=== PATIENT | female | born 1950 | race African-American/Black ===

== ENCOUNTER 2020-04-07 19:50 | Inpatient (IN) | payer MEDICARE, MEDICAID ==
[~2020-04-07] VITALS: Ht 172.7 cm; Wt 160.1 kg
[2020-04-07] MEDS ORDERED: ACETAMINOPHEN 325MG TABLET PO ONE (20:45)
[2020-04-07] MEDS ORDERED: DILTIAZEM HCL 5MG/ML 5ML VIAL IV ONE (21:00)
[2020-04-07 21:07] LABS: BASOPHILS % 0.7 % (0.0-2.0); EOSINOPHILS % 2.8 % (0.0-5.0); HEMATOCRIT. 28.6 % (36.0-48.0); LYMPHOCYTES % 12.1 % (20.0-50.0); MEAN CORPUSCULAR HEMOGLOBIN 29.7 pg (28.0-32.0); MEAN PLATELET VOLUME 10.9 fl (7.4-10.4); MONOCYTES % 9.3 % (2.0-8.0); NEUTROPHILS % 75.1 % (40.0-76.0); PLATELET 145 x1000/uL (130-400); RED BLOOD CELL COUNT 3.04 mill/uL (4.2-5.4); RED CELL DISTRIBUTION WIDTH 16.5 % (11.6-14.6)
[2020-04-07 21:14] LABS: CHLORIDE 114 mEq/L (98-107)
[2020-04-07 21:17] LABS: INR 1.2; PROTHROMBIN TIME 12.9 sec (9.6-11.0)
[2020-04-07 21:25] LABS: CREATINE KINASE 62 IU/L (26-192)
[2020-04-07 21:26] LABS: CREATINE KINASE MB FRACTION 2.9 ng/mL (0.5-3.6)
[2020-04-07 23:03] LABS: CLARITY URINE TURBID (CLEAR); COLOR URINE YELLOW (YELLOW); KETONES URINE TRACE (NEGATIVE); LEUKOCYTE ESTERASE URINE 3+ (NEGATIVE); NITRITE URINE NEGATIVE (NEGATIVE); OCCULT BLOOD URINE 2+ (NEGATIVE); PH URINE 5.5 (4.5-8.0); PROTEIN URINE 2+ (NEGATIVE); SPECIFIC GRAVITY URINE 1.016 (1.005-1.030)
[2020-04-07] MEDS ORDERED: ENOXAPARIN 40MG/0.4ML SYR SUBCUT SCH (23:15)
[2020-04-07] MEDS ORDERED: TRAMADOL 50MG TABLET PO PRN (23:15)
[2020-04-07] MEDS ORDERED: ZOLPIDEM TARTRATE 5MG TABLET PO PRN (23:15)
[2020-04-07] MEDS ORDERED: DOCUSATE SODIUM 100MG CAPSULE PO PRN (23:15)
[2020-04-07] MEDS ORDERED: IPRATROPIUM/ALBUTEROL 0.5-3(2.5)MG/3ML NEB NEB PRN (23:15)
[2020-04-07] MEDS ORDERED: CLONIDINE 0.1MG TABLET PO PRN (23:15)
[2020-04-07] MEDS ORDERED: GUAIFENESIN 200MG/10ML SUGAR FREE UDC PO PRN (23:15)
[2020-04-07] MEDS ORDERED: ACETAMINOPHEN 325MG TABLET PO PRN (23:15)
[2020-04-07] MEDS ORDERED: LORAZEPAM 0.5MG TABLET PO PRN (23:15)
[2020-04-07] MEDS ORDERED: DEXTROSE 50% WATER 50ML SYRINGE IV PRN (23:15)
[2020-04-07] MEDS ORDERED: ONDANSETRON HCL 4MG/2ML INJ IV PRN (23:15)
[2020-04-07] MEDS ORDERED: NITROGLYCERIN 0.4MG TABLET SL SL PRN (23:15)
[2020-04-07] MEDS ORDERED: MAGNESIUM/ALUMINUM HYDROXIDE/SIMETHICONE 30ML UDC PO PRN (23:15)
[2020-04-08] VITALS (22 sets, daily range): BP systolic 93–131; BP diastolic 55–74
[2020-04-08] MEDS ORDERED: LEVOFLOXACIN 500MG PREMIX 100 ML IV SCH
[2020-04-08] MEDS ORDERED: ENOXAPARIN 150MG/ML SYR SUBCUT SCH (00:15)
[2020-04-08 01:39] LABS: T4 FREE 1.77 ng/dL (0.76-1.46)
[2020-04-08] MEDS: DILTIAZEM HCL 60MG TABLET PO SCH ×5 (02:00→23:35)
[2020-04-08] MEDS: SODIUM CHLORIDE 0.9% 1,000 ML IV SCH ×2 (02:01→17:40)
[2020-04-08 02:03] LABS: FOLIC ACID (FOLATE) SERUM 6.6 ng/mL (>5.38)
[2020-04-08 06:13] LABS: CHLORIDE 114 mEq/L (98-107)
[2020-04-08 06:15] LABS: BASOPHILS % 0.5 % (0.0-2.0); EOSINOPHILS % 3.5 % (0.0-5.0); HEMATOCRIT. 28.3 % (36.0-48.0); HEMOGLOBIN. 8.9 g/dL (12.0-16.0); LYMPHOCYTES % 17.8 % (20.0-50.0); MEAN CORPUSCULAR HEMOGLOBIN 30.1 pg (28.0-32.0); MEAN CORPUSCULAR VOLUME 95.5 fL (81.0-99.0); MEAN PLATELET VOLUME 10.6 fl (7.4-10.4); MONOCYTES % 10.1 % (2.0-8.0); NEUTROPHILS % 68.1 % (40.0-76.0); PLATELET 130 x1000/uL (130-400); RED BLOOD CELL COUNT 2.96 mill/uL (4.2-5.4); RED CELL DISTRIBUTION WIDTH 16.7 % (11.6-14.6)
[2020-04-08 06:22] LABS: CREATINE KINASE 111 IU/L (26-192)
[2020-04-08 06:25] LABS: CREATINE KINASE MB FRACTION 2.8 ng/mL (0.5-3.6)
[2020-04-08] MEDS: INSULIN LISPRO 100 UNITS/ML SUBCUT SCH ×4 (08:00→20:49)
[2020-04-08] MEDS: BLOOD SUGAR DIAGNOSTIC STRIP TEST SCH ×4 (08:13→20:49)
[2020-04-08] MEDS: ASCORBIC ACID 500 MG TABLET PO SCH ×2 (08:47→20:49)
[2020-04-08] MEDS: ZINC SULFATE 220 MG ( 50 ) CAPSULE PO SCH (08:47)
[2020-04-08] MEDS: ASPIRIN 325MG EC TABLET PO SCH (08:47)
[2020-04-08] MEDS: FAMOTIDINE 20MG TABLET PO SCH (08:48)
[2020-04-08 10:19] LABS: SODIUM URINE RANDOM 20 mEq/L
[2020-04-08 10:24] LABS: *AMPHETAMINES SCREEN URINE NEGATIVE (NEGATIVE); *BARBITURATES SCREEN URINE NEGATIVE (NEGATIVE); *BENZODIAZEPINES SCREEN URINE NEGATIVE (NEGATIVE); *COCAINE SCREEN URINE NEGATIVE (NEGATIVE)
[2020-04-08 10:25] LABS: CANNABINOID URINE SCREEN NEGATIVE (NEGATIVE); METHADONE URINE SCREEN NEGATIVE (NEGATIVE); OPIATES URINE SCREEN NEGATIVE (NEGATIVE); PHENCYCLIDINE URINE SCREEN NEGATIVE (NEGATIVE)
[2020-04-08 11:42] LABS: PHOSPHORUS 3.7 mg/dL (2.5-4.9)
[2020-04-08] MEDS ORDERED: LEVOFLOXACIN 250MG PREMIX 50 ML IV SCH ×2 (14:00→23:00)
[2020-04-08 16:58] LABS: CREATINE KINASE MB FRACTION 2.6 ng/mL (0.5-3.6)
[2020-04-08] MEDS: FUROSEMIDE 100MG/10ML VIAL IVP SCH (17:34)
[2020-04-09] VITALS (10 sets, daily range): BP systolic 91–129; BP diastolic 51–76
[2020-04-09] MEDS: ACETAMINOPHEN 325MG TABLET PO PRN ×2 (03:07→20:55)
[2020-04-09] MEDS: SODIUM CHLORIDE 0.9% 1,000 ML IV SCH (05:29)
[2020-04-09] MEDS: DILTIAZEM HCL 60MG TABLET PO SCH ×4 (05:29→23:57)
[2020-04-09 05:41] LABS: CHLORIDE 116 mEq/L (98-107)
[2020-04-09 05:48] LABS: PHOSPHORUS 3.4 mg/dL (2.5-4.9)
[2020-04-09 06:09] LABS: BASOPHILS % 0.5 % (0.0-2.0); EOSINOPHILS % 5.4 % (0.0-5.0); HEMATOCRIT. 26.5 % (36.0-48.0); HEMOGLOBIN. 8.4 g/dL (12.0-16.0); LYMPHOCYTES % 15.3 % (20.0-50.0); MEAN CORPUSCULAR HEMOGLOBIN 29.8 pg (28.0-32.0); MEAN CORPUSCULAR VOLUME 93.7 fL (81.0-99.0); MEAN PLATELET VOLUME 10.9 fl (7.4-10.4); MONOCYTES % 11.1 % (2.0-8.0); NEUTROPHILS % 67.7 % (40.0-76.0); PLATELET 139 x1000/uL (130-400); RED BLOOD CELL COUNT 2.83 mill/uL (4.2-5.4)
[2020-04-09] MEDS: BLOOD SUGAR DIAGNOSTIC STRIP TEST SCH ×4 (07:30→20:47)
[2020-04-09] MEDS: INSULIN LISPRO 100 UNITS/ML SUBCUT SCH ×4 (08:00→20:47)
[2020-04-09] MEDS: FUROSEMIDE 100MG/10ML VIAL IVP SCH ×2 (09:43→17:00)
[2020-04-09] MEDS: ZINC SULFATE 220 MG ( 50 ) CAPSULE PO SCH (09:44)
[2020-04-09] MEDS: ASPIRIN 325MG EC TABLET PO SCH (09:44)
[2020-04-09] MEDS: FAMOTIDINE 20MG TABLET PO SCH (09:44)
[2020-04-09] MEDS: ASCORBIC ACID 500 MG TABLET PO SCH ×2 (09:44→20:47)
[2020-04-09] MEDS: ENOXAPARIN 150MG/ML SYR SUBCUT SCH (09:46)
[2020-04-09] MEDS: MEROPENEM 1,000 MG in SODIUM CHLORIDE 0.9% 100 ML IV SCH (11:57)
[2020-04-09] MEDS ORDERED: VANCOMYCIN 2,000 MG in DEXT 5% WATER 500 ML IV NR (12:00)
[2020-04-09 18:46] LABS: CLARITY URINE CLOUDY (CLEAR); COLOR URINE YELLOW (YELLOW); KETONES URINE NEGATIVE (NEGATIVE); LEUKOCYTE ESTERASE URINE 2+ (NEGATIVE); NITRITE URINE NEGATIVE (NEGATIVE); OCCULT BLOOD URINE 1+ (NEGATIVE); PROTEIN URINE 1+ (NEGATIVE); SPECIFIC GRAVITY URINE 1.016 (1.005-1.030)
[2020-04-10] VITALS: BP 98/57
[2020-04-10 03:45] VITALS: BP 102/61
[2020-04-10] MEDS: DILTIAZEM HCL 60MG TABLET PO SCH ×4 (06:00→23:39)
[2020-04-10] MEDS: BLOOD SUGAR DIAGNOSTIC STRIP TEST SCH ×4 (07:30→21:00)
[2020-04-10 08:00] VITALS: BP 108/59
[2020-04-10] MEDS: INSULIN LISPRO 100 UNITS/ML SUBCUT SCH ×4 (08:00→21:00)
[2020-04-10 08:09] LABS: *CREATININE RANDOM URINE 74.8 mg/dL (Not Estab.); MICROALBUMIN RANDOM URINE 278.5 ug/mL (Not Estab.)
[2020-04-10] MEDS: ASPIRIN 325MG EC TABLET PO SCH (08:50)
[2020-04-10] MEDS: FAMOTIDINE 20MG TABLET PO SCH (08:51)
[2020-04-10] MEDS: ZINC SULFATE 220 MG ( 50 ) CAPSULE PO SCH (08:51)
[2020-04-10] MEDS: ENOXAPARIN 150MG/ML SYR SUBCUT SCH (08:51)
[2020-04-10] MEDS: ASCORBIC ACID 500 MG TABLET PO SCH ×2 (08:51→22:02)
[2020-04-10] MEDS: FUROSEMIDE 100MG/10ML VIAL IVP SCH ×2 (08:51→17:35)
[2020-04-10] MEDS: MEROPENEM 1,000 MG in SODIUM CHLORIDE 0.9% 100 ML IV SCH (10:53)
[2020-04-10 12:00] VITALS: BP 127/73
[2020-04-10] MEDS ORDERED: VANCOMYCIN 1 G PREMIX 200 ML IV SCH (12:00)
[2020-04-10] MEDS: ACETAMINOPHEN 325MG TABLET PO PRN (12:27)
[2020-04-10 20:00] VITALS: BP 127/59
[2020-04-10 22:00] VITALS: BP 122/87
[2020-04-11] VITALS (7 sets, daily range): BP systolic 99–123; BP diastolic 53–76
[2020-04-11 06:56] LABS: BASOPHILS % 0.4 % (0.0-2.0); EOSINOPHILS % 0.3 % (0.0-5.0); HEMATOCRIT. 26.8 % (36.0-48.0); HEMOGLOBIN. 8.6 g/dL (12.0-16.0); LYMPHOCYTES % 8.6 % (20.0-50.0); MEAN CORPUSCULAR HEMOGLOBIN 29.6 pg (28.0-32.0); MEAN CORPUSCULAR VOLUME 91.8 fL (81.0-99.0); MEAN PLATELET VOLUME 10.6 fl (7.4-10.4); MONOCYTES % 13.4 % (2.0-8.0); NEUTROPHILS % 77.3 % (40.0-76.0); PLATELET 134 x1000/uL (130-400); RED BLOOD CELL COUNT 2.91 mill/uL (4.2-5.4); RED CELL DISTRIBUTION WIDTH 16.2 % (11.6-14.6)
[2020-04-11] MEDS: DILTIAZEM HCL 60MG TABLET PO SCH (07:07)
[2020-04-11] MEDS: BLOOD SUGAR DIAGNOSTIC STRIP TEST SCH ×4 (07:30→21:00)
[2020-04-11 07:33] LABS: PHOSPHORUS 3.5 mg/dL (2.5-4.9)
[2020-04-11] MEDS: INSULIN LISPRO 100 UNITS/ML SUBCUT SCH ×4 (08:00→21:30)
[2020-04-11] MEDS: ZINC SULFATE 220 MG ( 50 ) CAPSULE PO SCH (08:55)
[2020-04-11] MEDS: ASCORBIC ACID 500 MG TABLET PO SCH ×2 (08:55→22:29)
[2020-04-11] MEDS: ASPIRIN 325MG EC TABLET PO SCH (08:55)
[2020-04-11] MEDS: ENOXAPARIN 150MG/ML SYR SUBCUT SCH (08:56)
[2020-04-11] MEDS: FUROSEMIDE 100MG/10ML VIAL IVP SCH ×2 (08:56→16:18)
[2020-04-11] MEDS: ACETAMINOPHEN 325MG TABLET PO PRN (08:56)
[2020-04-11] MEDS: FAMOTIDINE 20MG TABLET PO SCH (09:57)
[2020-04-11] MEDS: MEROPENEM 1,000 MG in SODIUM CHLORIDE 0.9% 100 ML IV SCH (10:02)
[2020-04-11 10:54] LABS: BG BASE EXCESS -9.5 mmol/L (-2.0-2.0); BG FRACTION INSPIRED OXYGEN 21; BG HCO3 ACT 14.7 mmol/L (22.0-26.0); BG METHEMOGLOBIN 0.3 % (0.0-1.5); BG OXYHEMOGLOBIN 95.7 % (94.0-97.0); BG PCO2 26.8 mmHg (35.0-45.0); BG PH 7.358 (7.350-7.450); BG PO2 89.2 mmHg (75.0-100.0); BG SAMPLE SITE RIGHT RADIAL; BG TOTAL HEMOGLOBIN 9.9 g/dL (12.0-18.0); BG VENT MODE ROOM AIR
[2020-04-11] MEDS: METOPROLOL TARTRATE 50MG TABLET PO SCH ×2 (11:00→22:29)
[2020-04-11] MEDS: CITRIC ACID/SODIUM CITRATE SOLN 15ML UDC PO SCH ×2 (16:18→16:19)
[2020-04-12] VITALS (9 sets, daily range): BP systolic 99–115; BP diastolic 48–77
[2020-04-12 04:43] LABS: BASOPHILS % 0.3 % (0.0-2.0); EOSINOPHILS % 0.3 % (0.0-5.0); HEMATOCRIT. 29.6 % (36.0-48.0); HEMOGLOBIN. 9.5 g/dL (12.0-16.0); LYMPHOCYTES % 7.4 % (20.0-50.0); MEAN CORPUSCULAR VOLUME 93.1 fL (81.0-99.0); MEAN PLATELET VOLUME 10.8 fl (7.4-10.4); MONOCYTES % 12.4 % (2.0-8.0); NEUTROPHILS % 79.6 % (40.0-76.0); PLATELET 139 x1000/uL (130-400); RED BLOOD CELL COUNT 3.17 mill/uL (4.2-5.4); RED CELL DISTRIBUTION WIDTH 16.5 % (11.6-14.6)
[2020-04-12 04:58] LABS: PHOSPHORUS 3.6 mg/dL (2.5-4.9)
[2020-04-12] MEDS: BLOOD SUGAR DIAGNOSTIC STRIP TEST SCH ×4 (07:30→20:44)
[2020-04-12] MEDS ORDERED: LACTULOSE 20G/30ML UDC PO PRN (09:30)
[2020-04-12] MEDS: FAMOTIDINE 20MG TABLET PO SCH (09:45)
[2020-04-12] MEDS: ZINC SULFATE 220 MG ( 50 ) CAPSULE PO SCH (09:45)
[2020-04-12] MEDS: MEGESTROL ACETATE 400 MG/10 ML UDC PO SCH (09:45)
[2020-04-12] MEDS: ASCORBIC ACID 500 MG TABLET PO SCH ×2 (09:45→20:43)
[2020-04-12] MEDS: FUROSEMIDE 100MG/10ML VIAL IVP SCH (09:45)
[2020-04-12] MEDS: ASPIRIN 81MG EC TABLET PO SCH (09:46)
[2020-04-12] MEDS: ENOXAPARIN 150MG/ML SYR SUBCUT SCH (09:49)
[2020-04-12] MEDS: INSULIN LISPRO 100 UNITS/ML SUBCUT SCH ×4 (10:03→20:55)
[2020-04-12] MEDS: METOPROLOL TARTRATE 50MG TABLET PO SCH ×2 (10:04→20:43)
[2020-04-12] MEDS: FUROSEMIDE 40MG TABLET PO SCH (18:14)
[2020-04-13] VITALS (12 sets, daily range): BP systolic 89–114; BP diastolic 53–72
[2020-04-13] MEDS: FUROSEMIDE 40MG TABLET PO SCH ×2 (05:18→17:50)
[2020-04-13 07:00] LABS: BASOPHILS % 0.1 % (0.0-2.0); EOSINOPHILS % 1.4 % (0.0-5.0); HEMATOCRIT. 26.8 % (36.0-48.0); HEMOGLOBIN. 8.8 g/dL (12.0-16.0); LYMPHOCYTES % 11.1 % (20.0-50.0); MEAN CORPUSCULAR HEMOGLOBIN 30.1 pg (28.0-32.0); MEAN CORPUSCULAR VOLUME 92.1 fL (81.0-99.0); MEAN PLATELET VOLUME 11.5 fl (7.4-10.4); MONOCYTES % 13.4 % (2.0-8.0); PLATELET 140 x1000/uL (130-400); RED BLOOD CELL COUNT 2.91 mill/uL (4.2-5.4); RED CELL DISTRIBUTION WIDTH 16.1 % (11.6-14.6)
[2020-04-13 07:36] LABS: PHOSPHORUS 3.6 mg/dL (2.5-4.9)
[2020-04-13] MEDS: INSULIN LISPRO 100 UNITS/ML SUBCUT SCH ×4 (08:00→22:03)
[2020-04-13] MEDS: BLOOD SUGAR DIAGNOSTIC STRIP TEST SCH ×4 (08:23→21:00)
[2020-04-13] MEDS: MEGESTROL ACETATE 400 MG/10 ML UDC PO SCH ×2 (08:35→12:27)
[2020-04-13] MEDS: METOPROLOL TARTRATE 50MG TABLET PO SCH ×3 (08:35→21:00)
[2020-04-13] MEDS: ASPIRIN 81MG EC TABLET PO SCH ×2 (08:35→12:27)
[2020-04-13] MEDS: ASCORBIC ACID 500 MG TABLET PO SCH ×3 (08:36→20:52)
[2020-04-13] MEDS: FAMOTIDINE 20MG TABLET PO SCH ×2 (08:36→12:27)
[2020-04-13] MEDS: ZINC SULFATE 220 MG ( 50 ) CAPSULE PO SCH ×2 (08:36→12:27)
[2020-04-13] MEDS: ENOXAPARIN 150MG/ML SYR SUBCUT SCH (08:36)
[2020-04-13] MEDS: APIXABAN 2.5 MG TABLET PO SCH ×3 (09:00→20:52)
[2020-04-13] MEDS ORDERED: AMIODARONE HCL 50MG/ML 3ML VIAL IV ONE (13:15)
[2020-04-13] MEDS ORDERED: AMIODARONE HCL 150 MG in DEXT 5% WATER 100 ML IV NR (15:00)
[2020-04-13] MEDS: AMIODARONE HCL 200 MG TABLET PO SCH ×2 (16:05→20:56)
[2020-04-13] MEDS: METOLAZONE 2.5MG TABLET PO SCH (17:50)
[2020-04-14] VITALS (11 sets, daily range): BP systolic 84–116; BP diastolic 37–70
[2020-04-14 06:25] LABS: PHOSPHORUS 3.9 mg/dL (2.5-4.9)
[2020-04-14] MEDS: METOLAZONE 2.5MG TABLET PO SCH ×2 (06:39→17:38)
[2020-04-14] MEDS: FUROSEMIDE 40MG TABLET PO SCH (06:39)
[2020-04-14 06:43] LABS: BASOPHILS % 0.3 % (0.0-2.0); EOSINOPHILS % 1.2 % (0.0-5.0); HEMATOCRIT. 26.5 % (36.0-48.0); HEMOGLOBIN. 8.7 g/dL (12.0-16.0); LYMPHOCYTES % 11.7 % (20.0-50.0); MEAN CORPUSCULAR HEMOGLOBIN 30.3 pg (28.0-32.0); MEAN CORPUSCULAR VOLUME 92.2 fL (81.0-99.0); MONOCYTES % 14.4 % (2.0-8.0); NEUTROPHILS % 72.4 % (40.0-76.0); PLATELET 141 x1000/uL (130-400); RED BLOOD CELL COUNT 2.87 mill/uL (4.2-5.4); RED CELL DISTRIBUTION WIDTH 16.1 % (11.6-14.6)
[2020-04-14] MEDS ORDERED: CALCIUM GLUCONATE 100MG/ML 10ML VIAL IV ONE (08:00)
[2020-04-14] MEDS: INSULIN LISPRO 100 UNITS/ML SUBCUT SCH ×4 (08:00→20:47)
[2020-04-14] MEDS: BLOOD SUGAR DIAGNOSTIC STRIP TEST SCH ×4 (08:06→20:48)
[2020-04-14] MEDS ORDERED: BUMETANIDE 1MG/4ML VIAL IV SCH (08:15)
[2020-04-14] MEDS ORDERED: CALCIUM GLUCONATE 1000 MG in DEXTROSE 5% WATER 100 ML IV SCH (09:00)
[2020-04-14] MEDS ORDERED: BUMETANIDE 1MG TABLET PO SCH (09:00)
[2020-04-14] MEDS: ASCORBIC ACID 500 MG TABLET PO SCH ×2 (09:10→20:41)
[2020-04-14] MEDS: ASPIRIN 81MG EC TABLET PO SCH (09:10)
[2020-04-14] MEDS: ZINC SULFATE 220 MG ( 50 ) CAPSULE PO SCH (09:10)
[2020-04-14] MEDS: AMIODARONE HCL 200 MG TABLET PO SCH ×2 (09:10→20:41)
[2020-04-14] MEDS: METOPROLOL TARTRATE 50MG TABLET PO SCH ×2 (09:11→20:47)
[2020-04-14] MEDS: FAMOTIDINE 20MG TABLET PO SCH (09:11)
[2020-04-14] MEDS: MEGESTROL ACETATE 400 MG/10 ML UDC PO SCH (09:11)
[2020-04-14] MEDS: APIXABAN 2.5 MG TABLET PO SCH ×2 (09:11→20:41)
[2020-04-14] MEDS ORDERED: SODIUM BICARBONATE 4% (2.4MEQ) 5ML VIAL IV ONE (09:14)
[2020-04-14] MEDS ORDERED: LIDOCAINE HCL 1% 20ML VIAL (Pyxis) INJ ONE (09:14)
[2020-04-14] MEDS: ACETAMINOPHEN 325MG TABLET PO PRN (09:55)
[2020-04-14] MEDS: BUMETANIDE 1MG TABLET PO SCH (17:38)
[2020-04-15] VITALS (11 sets, daily range): BP systolic 85–107; BP diastolic 49–60
[2020-04-15] MEDS: IPRATROPIUM/ALBUTEROL 0.5-3(2.5)MG/3ML NEB HHN SCH ×4 (01:58→20:20)
[2020-04-15 06:18] LABS: HEMATOCRIT. 26.7 % (36.0-48.0); HEMOGLOBIN. 8.7 g/dL (12.0-16.0); MEAN CORPUSCULAR HEMOGLOBIN 29.6 pg (28.0-32.0); MEAN CORPUSCULAR VOLUME 90.5 fL (81.0-99.0); PLATELET 147 x1000/uL (130-400); RED BLOOD CELL COUNT 2.95 mill/uL (4.2-5.4); RED CELL DISTRIBUTION WIDTH 15.9 % (11.6-14.6)
[2020-04-15] MEDS: ACETAMINOPHEN 325MG TABLET PO PRN (07:06)
[2020-04-15] MEDS: BLOOD SUGAR DIAGNOSTIC STRIP TEST SCH ×4 (07:30→21:00)
[2020-04-15] MEDS: INSULIN LISPRO 100 UNITS/ML SUBCUT SCH ×4 (08:00→23:29)
[2020-04-15] MEDS: ASPIRIN 81MG EC TABLET PO SCH (09:15)
[2020-04-15] MEDS: BUMETANIDE 1MG TABLET PO SCH (09:15)
[2020-04-15] MEDS: METOPROLOL TARTRATE 50MG TABLET PO SCH (09:15)
[2020-04-15] MEDS: APIXABAN 2.5 MG TABLET PO SCH ×2 (09:15→21:16)
[2020-04-15] MEDS: FAMOTIDINE 20MG TABLET PO SCH (09:15)
[2020-04-15] MEDS: MEGESTROL ACETATE 400 MG/10 ML UDC PO SCH (09:15)
[2020-04-15] MEDS: ASCORBIC ACID 500 MG TABLET PO SCH ×2 (09:15→21:16)
[2020-04-15] MEDS: ZINC SULFATE 220 MG ( 50 ) CAPSULE PO SCH (09:15)
[2020-04-15] MEDS: AMIODARONE HCL 200 MG TABLET PO SCH ×2 (09:16→21:16)
[2020-04-15] MEDS ORDERED: LIDOCAINE HCL/PF 1% 2ML VIAL ONE (10:00)
[2020-04-15 11:09] LABS: TOTAL IRON BINDING CAPACITY 212 ug/dL (250-450)
[2020-04-15 13:47] LABS: PLATELET ESTIMATE NORMAL
[2020-04-15 15:21] LABS: BG CARBOXYHEMOGLOBIN 0.3 % (0.5-1.5); BG DEOXYHEMOGLOBIN 2.6 % (0.0-5.0); BG FRACTION INSPIRED OXYGEN 21; BG HCO3 ACT 17.6 mmol/L (22.0-26.0); BG OXYGEN SATURATION 97.4 % (92.0-98.5); BG OXYHEMOGLOBIN 97.1 % (94.0-97.0); BG PCO2 28.5 mmHg (35.0-45.0); BG PH 7.409 (7.350-7.450); BG TOTAL HEMOGLOBIN 9.9 g/dL (12.0-18.0); BG VENT MODE ROOM AIR
[2020-04-15] MEDS: METOLAZONE 2.5MG TABLET PO SCH (17:15)
[2020-04-15] MEDS ORDERED: ALBUMIN HUMAN 25GM/100ML (25%) IV NR (18:00)
[2020-04-15] MEDS ORDERED: EPOETIN ALFA 4000UNITS/ML VIAL SUBCUT SCH (21:00)
[2020-04-16] VITALS (8 sets, daily range): BP systolic 92–109; BP diastolic 51–65
[2020-04-16] MEDS: IPRATROPIUM/ALBUTEROL 0.5-3(2.5)MG/3ML NEB HHN SCH ×3 (01:17→15:06)
[2020-04-16 05:46] LABS: BASOPHILS % 0.2 % (0.0-2.0); EOSINOPHILS % 0.9 % (0.0-5.0); HEMATOCRIT. 26.1 % (36.0-48.0); HEMOGLOBIN. 8.7 g/dL (12.0-16.0); LYMPHOCYTES % 8.4 % (20.0-50.0); MEAN CORPUSCULAR HEMOGLOBIN 30.3 pg (28.0-32.0); MEAN CORPUSCULAR VOLUME 91.3 fL (81.0-99.0); MEAN PLATELET VOLUME 10.7 fl (7.4-10.4); MONOCYTES % 13.6 % (2.0-8.0); NEUTROPHILS % 76.9 % (40.0-76.0); PLATELET 166 x1000/uL (130-400); RED BLOOD CELL COUNT 2.86 mill/uL (4.2-5.4); RED CELL DISTRIBUTION WIDTH 15.7 % (11.6-14.6)
[2020-04-16 05:51] LABS: CHLORIDE 111 mEq/L (98-107)
[2020-04-16 05:59] LABS: PHOSPHORUS 3.3 mg/dL (2.5-4.9)
[2020-04-16] MEDS ORDERED: ALBUMIN HUMAN 25GM/100ML (25%) IV NR (07:00)
[2020-04-16] MEDS: ACETAMINOPHEN 325MG TABLET PO PRN (07:21)
[2020-04-16] MEDS: INSULIN LISPRO 100 UNITS/ML SUBCUT SCH ×2 (08:00→12:16)
[2020-04-16] MEDS: BLOOD SUGAR DIAGNOSTIC STRIP TEST SCH ×3 (08:01→17:30)
[2020-04-16] MEDS: ASPIRIN 81MG EC TABLET PO SCH (08:57)
[2020-04-16] MEDS: APIXABAN 2.5 MG TABLET PO SCH (08:57)
[2020-04-16] MEDS: ASCORBIC ACID 500 MG TABLET PO SCH (08:57)
[2020-04-16] MEDS: ZINC SULFATE 220 MG ( 50 ) CAPSULE PO SCH (08:57)
[2020-04-16] MEDS: AMIODARONE HCL 200 MG TABLET PO SCH (08:57)
[2020-04-16] MEDS: FAMOTIDINE 20MG TABLET PO SCH (08:58)
[2020-04-16] MEDS: MEGESTROL ACETATE 400 MG/10 ML UDC PO SCH (08:58)
[2020-04-16] MEDS: METOPROLOL TARTRATE 25MG TABLET PO SCH ×2 (08:59→10:48)
[2020-04-16] MEDS ORDERED: BUMETANIDE 1MG TABLET PO SCH (17:15)
== END 2020-04-16 18:05 | DRG 871 ==
LOC: ER 19:50 → 5EST 23:00 → SUPCPDRO 23:05 → ENRESERV 23:15 → 5EST 04-14 13:35
PROVIDERS: ADMIT Internal Medicine; ATTEND Internal Medicine
PROC: 02HV33Z Insertion of Infusion Device into Superior Vena Cava, Percutaneous Approach (ICD-10-PCS; principal; 2020-04-14)
PROC: B548ZZA Ultrasonography of Superior Vena Cava, Guidance (ICD-10-PCS; 2020-04-14)
PROC: B5181ZA Fluoroscopy of Superior Vena Cava using Low Osmolar Contrast, Guidance (ICD-10-PCS; 2020-04-14)
DX: A41.9 Sepsis, unspecified organism (principal); I50.43 Acute on chronic combined systolic (congestive) and diastolic (congestive) heart failure; N17.0 Acute kidney failure with tubular necrosis; I21.4 Non-ST elevation (NSTEMI) myocardial infarction; E43 Unspecified severe protein-calorie malnutrition; N39.0 Urinary tract infection, site not specified; I13.0 Hypertensive heart and chronic kidney disease with heart failure and stage 1 through stage 4 chronic kidney disease, or unspecified chronic kidney disease; E87.2 Acidosis; N18.4 Chronic kidney disease, stage 4 (severe); Z68.43 Body mass index [BMI] 50.0-59.9, adult; E66.01 Morbid (severe) obesity due to excess calories; I27.20 Pulmonary hypertension, unspecified; D63.8 Anemia in other chronic diseases classified elsewhere; E11.22 Type 2 diabetes mellitus with diabetic chronic kidney disease; I48.91 Unspecified atrial fibrillation; B96.20 Unspecified Escherichia coli [E. coli] as the cause of diseases classified elsewhere; E78.5 Hyperlipidemia, unspecified; E87.5 Hyperkalemia; Z20.828 Contact with and (suspected) exposure to other viral communicable diseases; J45.909 Unspecified asthma, uncomplicated; Z79.4 Long term (current) use of insulin; Z82.49 Family history of ischemic heart disease and other diseases of the circulatory system; Z83.3 Family history of diabetes mellitus; Z88.0 Allergy status to penicillin; Z88.2 Allergy status to sulfonamides; Z98.51 Tubal ligation status; Z74.01 Bed confinement status; Z88.6 Allergy status to analgesic agent
CPT/HCPCS: 36415; 36556; 36600; 71045; 72100; 76770; 76937; 77001; 80048; 80053; 80061; 80076; 80202; 80305; 81003; 82043; 82375; 82550; 82553; 82570; 82607; 82746; 82805; 82962; 83036; 83540; 83550; 83605; 83735; 83880; 83935; 83970; 84100; 84156; 84300; 84439; 84443; 84484; 85025; 85379; 87077; 87186; 87426; 93005; 93306; 93970; 94640; 97110; 97162; 97166; 97530; 99291; C1752; J0282; J0610; J0885; J1642; J1650; J1815; J1940; J1956; J2185; J3370; J3490; J7050; J7060; P9047